=== PATIENT | male | born 1950 | race Caucasian/White ===

== ENCOUNTER 2020-09-23 08:57 | Emergency (ER) | payer MEDICARE ==
--- NOTE | 2020-09-23 10:06 | CR ---
PROCEDURE INFORMATION: Exam: XR Left Ribs with PA Chest Exam date and time: 09/23/2020 9:40 AM Age: 69 years old Clinical indication: Injury or trauma; Fall; Rib area, left side; Blunt trauma TECHNIQUE: Imaging protocol: XR Left ribs with PA chest. Views: 3 views COMPARISON: No relevant prior studies available. FINDINGS: Lungs: Unremarkable. No consolidation. Pleural spaces: Unremarkable. No pleural effusion. No pneumothorax. Heart/Mediastinum: Unremarkable. No cardiomegaly. Bones/joints: Multiple old left-sided rib fractures. There are fractures involving the anterior aspect of the left 5th and 6th ribs which appear acute. Old left 7th, 9th, 10th and 11th rib fractures. IMPRESSION: 1. Multiple old left-sided rib fractures. 2. There are fractures involving the anterior aspect of the left 5th and 6th ribs which appear acute.
--- NOTE | 2020-09-23 10:06 | CR ---
PROCEDURE INFORMATION: Exam: XR Left Shoulder Exam date and time: 09/23/2020 9:43 AM Age: 69 years old Clinical indication: Injury or trauma; Fall; Blunt trauma (contusions or hematomas); Shoulder; Left TECHNIQUE: Imaging protocol: XR Left shoulder. Views: 2 or more views. COMPARISON: No relevant prior studies available. FINDINGS: Bones/joints: There is no evidence of acute fracture or dislocation. No significant narrowing of the joint spaces. No lytic or blastic lesions. Soft tissues: No radiopaque foreign body within the soft tissues. IMPRESSION: No acute findings appreciated.
--- NOTE | 2020-09-23 10:40 | EDM.PDOC ---
ED HPI GENERAL MEDICAL PROBLEM - General Chief Complaint: Upper Extremity Injury/Pain Stated Complaint: [id number] FELL Time Seen by Provider: 09/23/20 10:30 Source of Information: Reports: Patient History Limitations: Reports: No Limitations - History of Present Illness INITIAL COMMENTS - FREE TEXT/NARRATIVE: This 69 yo male patient reports to the ED with left rib and left shoulder pain. The patient reports he was getting out of his camper this morning when he missed 3 steps and fell out of the camper onto his left shoulder. The patient reports increased pain in the area since the fall. The patient reports he did get a little dizzy after the fall, but does not believe he hit his head or had a loss of consciousness. Onset: Today Duration: Hour(s):, Constant Location: Reports: Chest (left rib), Upper Extremity, Left Quality: Reports: Ache, Dull Severity: Moderate Improves with: Reports: Rest Worsens with: Reports: Movement Context: Reports: Activity Associated Symptoms: Reports: No Other Symptoms Left Shoulder Pain Score (Numeric/FACES): 7 - Related Data Allergies Allergy/AdvReac Type Severity Reaction Status Date / Time No Known Allergies Allergy Verified 09/23/20 09:21 Home Meds: Home Meds Bisoprolol/Hydrochlorothiazide [Bisoprolol-Hctz 2.5-6.25 mg Tb] 1 tab PO DAILY 09/23/20 [History] Citalopram [Citalopram HBr] 20 mg PO DAILY 09/23/20 [History] Divalproex Sodium [Depakote ER] 250 mg PO BEDTIME 09/23/20 [History] Divalproex Sodium [Depakote ER] 500 mg PO DAILY 09/23/20 [History] Meloxicam 15 mg PO DAILY 09/23/20 [History] atorvaSTATin [Lipitor] 40 mg PO DAILY 09/23/20 [History] Past Medical History HEENT History: Reports: Hard of Hearing, Impaired Vision Other HEENT History: wears glasses, right ear hearing aide Cardiovascular History: Reports: High Cholesterol, Hypertension Respiratory History: Reports: None Gastrointestinal History: Reports: None Genitourinary History: Reports: None Musculoskeletal History: Reports: Arthritis Other Neuro History: TBI in 2013 Psychiatric History: Reports: None Endocrine/Metabolic History: Reports: None Hematologic History: Reports: None Immunologic History: Reports: None Oncologic (Cancer) History: Reports: None - Infectious Disease History Infectious Disease History: Reports: Measles, Mumps - Past Surgical History Head Surgeries/Procedures: Reports: None Social & Family History - Tobacco Use Tobacco Use Status *Q: Never Tobacco User Second Hand Smoke Exposure: No - Caffeine Use Caffeine Use: Reports: Soda - Recreational Drug Use Recreational Drug Use: No Review of Systems - Review of Systems Review Of Systems: Comprehensive ROS is negative, except as noted in HPI. ED EXAM, GENERAL - Physical Exam Exam: See Below Exam Limited By: No Limitations General Appearance: Alert, WD/WN, Moderate Distress Eye Exam: Bilateral Eye: EOMI, Normal Inspection, PERRL Ears: Normal External Exam, Normal Canal, Hearing Grossly Normal, Normal TMs Nose: Normal Inspection, Normal Mucosa, No Blood Throat/Mouth: Normal Inspection, Normal Lips, Normal Teeth, Normal Gums, Normal Oropharynx, Normal Voice, No Airway Compromise Head: Atraumatic, Normocephalic Neck: Normal Inspection, Supple, Non-Tender, Full Range of Motion Respiratory/Chest: No Respiratory Distress, Lungs Clear, Normal Breath Sounds, No Accessory Muscle Use, Other (left chest wall tenderness) Cardiovascular: Normal Peripheral Pulses, Regular Rate, Rhythm, No Edema, No Gallop, No JVD, No Murmur, No Rub GI/Abdominal: Normal Bowel Sounds, Soft, Non-Tender, No Organomegaly, No Distention, No Abnormal Bruit, No Mass (Male) Exam: Deferred Rectal (Males) Exam: Deferred Back Exam: Normal Inspection, Full Range of Motion, NT Extremities: Arm Pain (left shoulder pain with movement) Neurological: Alert, Oriented, CN II-XII Intact, Normal Cognition, Normal Gait, Normal Reflexes, No Motor/Sensory Deficits Psychiatric: Normal Affect, Normal Mood Skin Exam: Warm, Dry, Intact, Normal Color, No Rash Lymphatic: No Adenopathy Course - Vital Signs Last Recorded V/S: Last Vital Signs Temp 98 F 09/23/20 09:17 Pulse 72 09/23/20 09:17 Resp 16 09/23/20 09:17 BP 124/61 09/23/20 09:17 Pulse Ox 98 09/23/20 09:17 - Orders/Labs/Meds Meds: Medications Discontinued Medications Generic Name Dose Route Start Last Admin Trade Name Freq PRN Reason Stop Dose Admin Hydrocodone Bitart/Acetaminophen 1 tab 09/23/20 10:41 Acetaminophen/Hydrocodone 325-5 Mg Tab PO 09/23/20 10:42 ONETIME ONE - Radiology Interpretation Free Text/Narrative:: [facility] Final Radiology Report Call: [phone] assistance Online chat: [email or web address] Name: SERA HANSEN Age: 69Years M Date: 09/23/2020 SSN: -- : 1950 Study: CR SHOULDER COMP LT Requesting Physician: Rohith Almonte Images: 3 Addl Studies: Provided Clinical History: fall Contrast: Contrast Medium: Contrast Amount: Contrast Method: CONFIDENTIALITY STATEMENT This report is intended only for use by the referring physician, and only in accordance with law. If you received this in error, call [phone]. Page 1 of 1 PROCEDURE INFORMATION: Exam: XR Left Shoulder Exam date and time: 09/23/2020 9:43 AM Age: 69 years old Clinical indication: Injury or trauma; Fall; Blunt trauma (contusions or hematomas); Shoulder; Left TECHNIQUE: Imaging protocol: XR Left shoulder. Views: 2 or more views. COMPARISON: No relevant prior studies available. FINDINGS: Bones/joints: There is no evidence of acute fracture or dislocation. No significant narrowing of the joint spaces. No lytic or blastic lesions. Soft tissues: No radiopaque foreign body within the soft tissues. IMPRESSION: No acute findings appreciated. Thank you for allowing us to participate in the care of your patient. Dictated and Authenticated by: Holland Decekr MD 09/23/2020 10:06 AM Central Time ([place] & [place]) [facility] Final Radiology Report Call: [phone] assistance Online chat: [email or web address] Name: SERA HANSEN Age: 69Years M Date: 09/23/2020 SSN: -- : 1950 Study: CR RIBS 2V W CHEST LT Requesting Physician: Rohith Almonte Images: 3 Addl Studies: Provided Clinical History: fall Contrast: Contrast Medium: Contrast Amount: Contrast Method: CONFIDENTIALITY STATEMENT This report is intended only for use by the referring physician, and only in accordance with law. If you received this in error, call [phone]. Page 1 of 1 PROCEDURE INFORMATION: Exam: XR Left Ribs with PA Chest Exam date and time: 09/23/2020 9:40 AM Age: 69 years old Clinical indication: Injury or trauma; Fall; Rib area, left side; Blunt trauma TECHNIQUE: Imaging protocol: XR Left ribs with PA chest. Views: 3 views COMPARISON: No relevant prior studies available. FINDINGS: Lungs: Unremarkable. No consolidation. Pleural spaces: Unremarkable. No pleural effusion. No pneumothorax. Heart/Mediastinum: Unremarkable. No cardiomegaly. Bones/joints: Multiple old left-sided rib fractures. There are fractures involving the anterior aspect of the left 5th and 6th ribs which appear acute. Old left 7th, 9th, 10th and 11th rib fractures. IMPRESSION: 1. Multiple old left-sided rib fractures. 2. There are fractures involving the anterior aspect of the left 5th and 6th ribs which appear acute. Thank you for allowing us to participate in the care of your patient. Dictated and Authenticated by: Holland Decker MD 09/23/2020 10:05 AM Central Time ([place] & [place]) Departure - Departure Time of Disposition: 10:44 Disposition: Home, Self-Care 01 Condition: Fair Clinical Impression: Fall from ground level Left rib fracture Qualifiers: Encounter type: initial encounter Rib fracture type: multiple ribs Fracture type: closed Qualified Code(s): S22.42XA - Multiple fractures of ribs, left side, initial encounter for closed fracture Left shoulder strain Qualifiers: Encounter type: initial encounter Qualified Code(s): S46.912A - Strain of unspecified muscle, fascia and tendon at shoulder and upper arm level, left arm, initial encounter - Discharge Information *PRESCRIPTION DRUG MONITORING PROGRAM REVIEWED*: Not Applicable *COPY OF PRESCRIPTION DRUG MONITORING REPORT IN PATIENT JOHN: Not Applicable Instructions: Shoulder Pain, [id number], Rib Fracture, [id number] Forms: ED Department Discharge Care Plan Goals: The patient was advised of the examination and x-ray results during the visit. The patient was given an oral dose of [place] (5/325) while in the ED for pain. The patient was discharged with a script for [place] (10/325) #10 to take 1 by mouth every 6 hours as needed for pain. The patient was given a copy of the x- rays on CD and a paper copy of the radiologist reading of his x-rays during the visit. If the patient has any additional symptoms or concerns, the patient should either return to the emergency department or visit his primary care facility. Sepsis Event Note (ED) - Evaluation Sepsis Screening Result: No Definite Risk - Focused Exam Vital Signs: Vital Signs Temp Pulse Resp BP Pulse Ox 09/23/20 09:17 98 F 72 16 124/61 98
[2020-09-23] MEDS ORDERED: Acetaminophen/HYDROcodone 325-5 MG Tab PO ONE (10:41)
== END 2020-09-23 10:58 | disposition home or self-care (01) ==
LOC: DL.ED 08:57
DX: S22.42XA Multiple fractures of ribs, left side, initial encounter for closed fracture (principal); S46.912A Strain of unspecified muscle, fascia and tendon at shoulder and upper arm level, left arm, initial encounter; E78.00 Pure hypercholesterolemia, unspecified; I10 Essential (primary) hypertension; M19.90 Unspecified osteoarthritis, unspecified site; Z79.899 Other long term (current) drug therapy; W10.9XXA Fall (on) (from) unspecified stairs and steps, initial encounter
CPT/HCPCS: 71101; 73030; 99283; A9270